=== PATIENT | female | born 1945 | race Caucasian/White ===

== ENCOUNTER → 2020-03-24 | Outpatient (CLI) | payer OTHER, BC ==
[~2020-03-24] MED LIST: ALEVE220 M1 PO; AMLODIPINE BESYL5 MG PO; CRESTOR5 MG PO; DIOVAN320 MG PO; LOPRESSOR100 MG PO; MOBIC15 MG PO; SYNTHROID125 MCG PO
== END ==
LOC: SJCVCIMAG 10:46
DX: I11.9 Hypertensive heart disease without heart failure (principal); F41.9 Anxiety disorder, unspecified